=== PATIENT | female | born 1995 | race Caucasian/White ===

== ENCOUNTER 2019-10-29 17:17 | Emergency (ER) | payer MEDICARE ==
[2019-10-29] MEDS ORDERED: ONDANSETRON 4 MG/2 ML VIAL IVPUSH ONE (17:30)
--- NOTE | 2019-10-29 17:30 | PDOC ---
Rapid Medical Evaluation Chief Complaint: Nausea/Vomiting Time Seen by Provider: 10/29/19 17:28 Medical Evaluation: 10/29/19 17:28 24 year old female no pmhx presenting with 4 days of nausea and vomiting Pe: WNL Labs Zofran Pt to precede to ED for further evaluation and treatment at the discretion of the provider in the ED
[2019-10-29 17:38] VITALS: TEMP 98.6; BMI 26.9
[2019-10-29 17:55] LABS: BASO % 1.1 % (0-2.0); EOS % 0.5 % (0-4.5); HEMATOCRIT 37.7 % (32.4-45.2); HEMOGLOBIN 12.8 GM/dL (10.7-15.3); LYMPH % 25.4 % (8-40); MCHC 34.1 g/dl (32.0-36.0); MEAN CELL VOLUME 88.2 fl (80-96); MEAN PLT VOLUME 8.4 fl (7.5-11.1); MONO % 6.8 % (3.8-10.2); NEUT % 66.2 % (42.8-82.8); PLATELET COUNT 328 K/MM3 (134-434); RBC 4.27 M/mm3 (3.60-5.2); RDW 13.4 % (11.6-15.6); WHITE BLOOD COUNT 9.8 K/mm3 (4.0-10.0)
[2019-10-29 18:11] LABS: ALBUMIN 3.9 g/dl (3.4-5.0); BILIRUBIN,TOTAL 0.4 mg/dL (0.2-1); BLOOD UREA NITROGEN 6.5 mg/dL (7-18); CALCIUM 9.8 mg/dL (8.5-10.1); CREATININE 0.5 mg/dL (0.55-1.3); POTASSIUM 4.4 mmol/L (3.5-5.1); TOT PROT 7.5 g/dl (6.4-8.2)
--- NOTE | 2019-10-29 18:15 | PDOC ---
History of Present Illness - General Chief Complaint: Nausea/Vomiting Stated Complaint: VOMITING Time Seen by Provider: 10/29/19 17:28 - History of Present Illness Initial Comments: 10/29/19 18:13 24 y/o F presents for evaluations of TAYLOR N,V x1 week. No systemic symptoms. Past History - Medical History Allergies/Adverse Reactions: Allergies Allergy/AdvReac Type Severity Reaction Status Date / Time No Known Allergies Allergy Verified 10/29/19 17:38 Home Medications: Ambulatory Orders Pnv No.95/Ferrous Fum/Folic AC [ Formula] 1 each PO DAILY #30 tablet 10/29/19 COPD: No Dialysis: No Kidney Stones: No - Surgical History Cholecystectomy: No Lung Surgery: No - Immunization History Immunization Up to Date: No - Psycho-Social/Smoking History Smoking History: Never smoked Have you smoked in the past 12 months: No Information on smoking cessation initiated: No - Substance Abuse Hx (Audit-C & DAST Scrn) How often the patient has a drink containing alcohol: Never Score: In Men: 4 or > Positive; In Women: 3 or > Positive: 0 Screen Result (Pos requires Nsg. Audit-10AR): Negative In the last yr the pt used illegal drug/Rx for NonMed reason: No Score: Yes response is considered Positive: 0 Screen Result (Positive result requires Nsg. DAST-10): Negative Review of Systems - Review of Systems Constitutional: No: Chills, Diaphoresis, Fever, Malaise, Night Sweats ABD/GI: Yes: Diarrhea, Nausea, Vomiting. No: Blood Streaked Bowels, Constipated, Rectal Bleeding Neurological: Yes: Headache *Physical Exam - Vital Signs Last Vital Signs Temp Pulse Resp BP Pulse Ox 98.6 F 84 18 109/65 99 10/29/19 17:36 10/29/19 17:36 10/29/19 17:36 10/29/19 17:36 10/29/19 17:36 - Physical Exam General Appearance: Yes: Nourished, Appropriately Dressed. No: Apparent Distress HEENT: positive: Symmetrical Neck: positive: Supple Respiratory/Chest: positive: Normal Breath Sounds. negative: Respiratory Distress Gastrointestinal/Abdominal: negative: Tender, Distended, Guarding, Rebound, Tenderness, Hernia, Mass Musculoskeletal: positive: Normal Inspection Extremity: positive: Normal Inspection Integumentary: positive: Normal Color Neurologic: positive: vice president research II-XII NML intact, Fully Oriented, Alert, Normal Mood/Affect ED Treatment Course - LABORATORY CBC & Chemistry Diagram: 10/29/19 17:40 10/29/19 17:40 - ADDITIONAL ORDERS Additional order review: Laboratory Results 10/29/19 17:40 Sodium 138 Potassium 4.4 Chloride 106 Carbon Dioxide 20 L Anion Gap 11 BUN 6.5 L Creatinine 0.5 L Est GFR (CKD-EPI)AfAm 155.90 Est GFR (CKD-EPI)NonAf 134.52 Random Glucose 80 Calcium 9.8 Total Bilirubin 0.4 AST 39 H ALT 58 Alkaline Phosphatase 73 Total Protein 7.5 Albumin 3.9 Lipase 75 10/29/19 17:40 RBC 4.27 MCV 88.2 MCHC 34.1 RDW 13.4 MPV 8.4 Neutrophils % 66.2 Lymphocytes % 25.4 Monocytes % 6.8 Eosinophils % 0.5 Basophils % 1.1 Medical Decision Making - Medical Decision Making 10/29/19 20:20 Newly diagnosed patient informed. Patient to follow-up with [facility]. Ultrasound not done. No bleeding or pelvic discomfort. vitamin sent to pharmacy. I have reviewed the pathophysiology with the patient. They are in agreement with the treatment plan all questions were answered to their satisfaction. Understanding for follow-up without fail was also conveyed to the patient. Again they are in agreement. Discharge - Discharge Information Problems reviewed: Yes Clinical Impression/Diagnosis: Condition: Stable Disposition: HOME - Admission No - Additional Discharge Information Prescriptions: Pnv No.95/Ferrous Fum/Folic AC [ Formula] 1 each PO DAILY #30 tablet - Follow up/Referral Referrals: Denys Cobb MD [Staff Physician] - - Patient Discharge Instructions Additional Instructions: Please start the vitamin and take it as directed 1 daily. Return to the emergency room for further issues and without fail follow-up with [facility] in 1 to 2 days for further evaluation and treatment options. - Post Discharge Activity
[2019-10-29] MEDS ORDERED: ACETAMINOPHEN 1000 MG/100 ML VIAL (NON FORMULARY) IVPB ONE (18:16)
[2019-10-29] MEDS ORDERED: ACETAMINOPHEN INJECTION 100 ML IVPB ONE (18:45)
[2019-10-30 06:06] VITALS: BP 112/73; PULSE 80
== END 2019-10-29 20:30 | disposition home or self-care (01) ==
LOC: JER 17:17
PROC: 3E0333Z Introduction of Anti-inflammatory into Peripheral Vein, Percutaneous Approach (ICD-10-PCS; principal; 2019-10-29)
PROC: 3E033GC Introduction of Other Therapeutic Substance into Peripheral Vein, Percutaneous Approach (ICD-10-PCS; 2019-10-29)
DX: R11.2 Nausea with vomiting, unspecified (principal); Z33.3 Pregnant state, gestational carrier
CPT/HCPCS: 36415; 80053; 83690; 84703; 85025; 99284-25; J0131

== ENCOUNTER 2020-10-02 16:40 | Emergency (ER) | payer MEDICARE, OTHER ==
[2020-10-02 16:44] VITALS: BP 111/70; PULSE 118; TEMP 98.1; BMI 26.9
[2020-10-02] MEDS ORDERED: KETOROLAC TROMETHAMINE 30 MG/1 ML VIAL IM ONE (17:31)
[2020-10-02] MEDS ORDERED: KETOROLAC TROMETHAMINE 30 MG/1 ML VIAL ONE (17:34)
== END 2020-10-03 00:51 | disposition home or self-care (01) ==
LOC: JERFT 16:40
PROC: 3E0233Z Introduction of Anti-inflammatory into Muscle, Percutaneous Approach (ICD-10-PCS; principal; 2020-10-02)
DX: M79.10 Myalgia, unspecified site (principal)
CPT/HCPCS: 99284-25